=== PATIENT | female | born 1965 | race Caucasian/White ===

== ENCOUNTER → 2018-07-29 15:53 | Outpatient (CLI) | payer OTHER, SELFPAY ==
--- NOTE | 2018-07-29 | DI.US.S_ITS ---
PROCEDURE: US RENAL COMPLETE INDICATIONS: HEMATURIA TECHNIQUE: Real-time scanning was performed of the kidneys and bladder, with image documentation. COMPARISON: None. FINDINGS: Kidneys: Kidneys are normal in size. Right kidney measures 10.1 cm long; left kidney measures 11.1 cm long. Right renal cortical thickness is 1.1 cm; left renal cortical thickness is 1.5 cm. Renal cortical echotexture is normal. No hydronephrosis or nephrolithiasis. No suspicious solid mass lesions. Bladder: Pre-void bladder volume is 519 mL. Post-void residual is 27 mL. Pre-void images demonstrate no intraluminal masses or stones. On pre-void images, right but not the left ureteral jets are noted with color Doppler interrogation. (Of note, ureteral jets may not be detectable in up to 25% of cases due to insufficient differences in specific gravity between ureteral and bladder urine). Miscellaneous: No free pelvic fluid. IMPRESSION: No hydronephrosis or nephrolithiasis is found. There is a 1.3 cm right renal cortical simple cyst. Source of hematuria is not found. Bladder volume prevoid is 519 cc, post void is 27 cc. Dictated by: Sergo Mccormick M.D. on 07/29/2018 at 16:52 Approved by: Sergo Mccormick M.D. on 07/29/2018 at 16:53
== END ==
PROVIDERS: PCP Nurse Practitioner Family; Visit Provider Nurse Practitioner Family
DX: R31.9 Hematuria, unspecified (principal); N28.1 Cyst of kidney, acquired
CPT/HCPCS: 76770

== ENCOUNTER → 2019-05-06 14:01 | Outpatient (CLI) | payer OTHER, SELFPAY ==
--- NOTE | 2019-05-06 | DI.RAD.S_ITS ---
PROCEDURE: XR KNEE RT 3V INDICATIONS: CHRONIC RT KNEE PAIN TECHNIQUE: 3 views of the knee were acquired. COMPARISON: None. FINDINGS: Bones: No fractures or dislocations. No suspicious bony lesions. Mild lateral patellar tilt. Mild narrowing of the medial joint space. Soft tissues: No joint effusion. No suspicious soft tissue calcifications. IMPRESSION: Mild right knee joint degeneration Dictated by: Ranjeet Shaikh M.D. on 05/06/2019 at 14:45 Approved by: Ranjeet Shaikh M.D. on 05/06/2019 at 14:46
== END ==
PROVIDERS: PCP Nurse Practitioner Family; Referring Provider Nurse Practitioner Family; Visit Provider Nurse Practitioner Family
DX: M25.561 Pain in right knee (principal); M17.11 Unilateral primary osteoarthritis, right knee; G89.29 Other chronic pain
CPT/HCPCS: 73562

== ENCOUNTER → 2019-10-14 13:03 | Outpatient (CLI) | payer OTHER, SELFPAY ==
--- NOTE | 2019-10-14 13:06 | DI.CT.S_ITS ---
PROCEDURE: CT ABDOMEN PELVIS WO/W CON INDICATIONS: MICROSCOPIC HEMATURIA TECHNIQUE: Optional 5 mm thick noncontrast images acquired from the diaphragm to the symphysis pubis. After the administration of intravenous contrast, 5 mm thick images acquired from the diaphragm to the symphysis pubis after a 10-minute delay. 2 mm thick coronal and sagittal reformats were then performed of the kidneys and ureters. For radiation dose reduction, the following was used: automated exposure control, adjustment of mA and/or kV according to patient size. COMPARISON: None. FINDINGS: Image quality: Excellent. Lung bases: Lung bases are clear. Heart size is normal. Urinary system: Both kidneys are normal in size, without hydronephrosis or nephrolithiasis on pre-contrast images. No perinephric fat stranding. There is normal bilateral renal enhancement. Renal calyces appear normal in morphology when filled with contrast. Opacified portions of both ureters demonstrate normal caliber. Bladder wall thickness is normal. No calcified bladder stones. Other solid organs: Liver is normal in size and enhancement. Incidental small hepatic cysts versus hemangiomata. Gallbladder is unremarkable . Biliary system is non dilated. Pancreas enhances normally. Spleen is normal in size and enhancement. No adrenal nodules. Peritoneum and bowel: Question focal peristalsis versus focal constricting lesion in the level of the proximal rectum or rectosigmoid. Reference image 170/4. Colon otherwise unremarkable. Small bowel unremarkable. No free air, free fluid, or abscess cavity. Nodes and vessels: No retroperitoneal or mesenteric adenopathy by size criteria. Aorta and inferior vena cava are normal in size. Abdominal wall: No ventral hernias. Pelvis: No pathologic free pelvic fluid. No inguinal hernias or adenopathy. Bones: No suspicious bony lesions. No vertebral body compression fractures. IMPRESSION: 1. No evidence of renal stones, ureteral stones, or hydronephrosis. 2. No evidence of malignancy. 3. Question peristalsis versus constricting lesion of the proximal rectum or rectosigmoid junction region. Recommend direct visualization utilizing colonoscopy if recent colonoscopy has not been performed. Dictated by: Wilner Hernandez M.D. on 10/14/2019 at 14:17 Approved by: Wilner Hernandez M.D. on 10/14/2019 at 14:23
== END ==
PROVIDERS: PCP Nurse Practitioner Family; Referring Provider Urology; Visit Provider Urology
DX: R31.29 Other microscopic hematuria (principal)
CPT/HCPCS: 74178; Q9967

== ENCOUNTER 2020-01-06 08:55 | Day surgery (SDC) | payer OTHER, SELFPAY ==
--- NOTE | 2020-01-06 | PATH_ITS ---
[facility] Accession Number: [id number] . 01 Material submitted: . body - POLYP AT 65CM . 02 Diagnosis: Colon, Polyp at 65 cm, Biopsy: Sessile serrated adenoma. V 01/10/2020 1051 Local . 02 Electronically signed: . Leslie Mccarty MD, Pathologist NPI- [id number] . 01 Gross description: . The specimen is received in formalin, labeled polyp at 65 cm, and consists of a 1.3 x 0.6 x 0.2 cm, lynn-pink polyp. The base inked blue. The specimen is bisected and entirely submitted in cassette A1. ([id number]) /R 01/07/2020 1717 Local . 02 Pathologist provided ICD-10: D12.6 . 02 CPT . 947106 Performed at: 01 [facility] [address] [id number] MD Alex Valladares MD Phone: [phone] Performed at: 02 [facility] [address] [place], [place] [id number] MD Leslie Mccarty MD Phone: [phone]
[2020-01-06] MEDS: SODIUM CHLORIDE 0.9% 1,000 ML 200 ML IV (09:15)
[2020-01-06 09:18] VITALS: BP 124/71; PULSE 67; RESP 16; TEMP 37.4; O2SAT 97; BMI 25.6
--- NOTE | 2020-01-06 09:37 | PM.HP.1 ---
History of Present Illness History of Present Illness Date Patient Seen: 01/06/20 Time Patient Seen: 09:37 Chief complaint: SDC Narrative: This is a 54-year-old woman with history of colon polyps found on a prior colonoscopy 4 years ago. She also had a CT scan recently which showed a narrowing in her sigmoid colon which may be an artifact of the scan. She denies any changes in bowel habit, melena, hematochezia, unexplained abdominal pain, unexplained weight loss. ROS: Arthritis, Thirteen system review is otherwise negative other than as mentioned below and in HPI. PE GENERAL: Well groomed and cooperative. Appears stated age. Answers questions promptly and appropriately. Vital signs noted. HENT: Normocephalic, atraumatic. Hearing intact. EYES: Conjunctiva pink, sclera white, no periorbital swelling. CARDIOVASCULAR: Regular rate. No pedal edema. RESPIRATORY: Non-tachypneic, breathing comfortably on room air. GASTROINTESTINAL: Abdomen soft and non-distended GENITALURINARY: No flank tenderness. MUSCULOSKELETAL: Equal tone and mass bilaterally. SKIN: Warm, dry, soft, appropriate color for ethnicity. No other lesions, rashes, or wounds. NEURO: Alert and Oriented X 3. No gross sensory deficits, or cognitive issues. PSYCH: Appropriate affect and mood. Patient History Family & Social History Social History: household members significant other Tobacco & Substance use: Smoking Status Never smoker alcohol intake current alcohol intake frequency a few times a week Substance Use Type does not use Meds Home Medications and Allergies Home Medications Medication Instructions Recorded Confirmed Type multivitamin 1 cap PO DAILY 01/06/20 01/06/20 History Allergies Allergy/AdvReac Type Severity Reaction Status Date / Time Sulfa (Sulfonamide Allergy Severe Hives Unverified 01/06/20 09:07 Antibiotics) Exam Vital Signs (past 8 hours): - 01/06/20 09:18 Temperature 99.3 F Pulse Rate 67 Respiratory Rate 16 Blood Pressure 124/71 Pulse Oximetry 97 Oxygen Delivery Method Room Air Assessment & Plan Assessment & Plan narrative: Risks and benefits of screening colonoscopy and possible polypectomy were discussed with the patient including risk of bleeding, perforation, need for additional procedures, risks of anesthesia. The patient desires to proceed with the colonoscopy procedure. COVID-19 COVID-19 status: Negative Result date/Date tested (Pos, Neg/Pending): 10/27/20 Time Spent With Patient Time with patient: 15-24 minutes Quality VTE Deep Vein Thrombosis/Pulmonary Embolism Present on Admission: No
--- NOTE | 2020-01-06 09:41 | PM.OP.ENDO ---
Operative Date/Time/Diagnoses Date of procedure: 01/06/20 Time of procedure: 09:41 Pre-op diagnosis: Personal history of colon polyps, abnormal CT scan Post-op diagnosis: other (1cm polyp removed from 65cm; tortuous sigmoid colon) Procedure & Clinicians Study performed: Colonoscopy Procedural sedation performed by the endoscopist Polypectomy with cold snare Indications: Personal history of colon polyps, abnormal CT scan showing rectal narrowing Surgeon: Haritha Cam Procedure Notes SCOAP/Timeout: Performed Procedure in detail: The patient was brought to the room and placed in left lateral decubitus position with all bony prominences padded. A time-out was performed and then the patient was given procedural sedation starting with 3 mg of Versed and 100 mcg of fentanyl. A total of 7 mg of Versed and 200 micro g of fentanyl were given for the entire procedure. Vitals were monitored throughout the procedure and remained stable. Once adequately sedated, the procedure was begun. A rectal exam was performed revealing no abnormalities. The colonoscope was then introduced to the rectum and advanced to the cecum in the usual fashion. The sigmoid colon was very tortuous, but was not found to be stenosed, and no mucosal abnormality was seen within the sigmoid colon. The cecum was identified by the appendiceal orifice, the mucosal tri-fold, and the ileocecal valve. 1 cm polyp was found at 65 cm in the descending colon. It will was removed with cold snare and sent for pathology. The scope was then retracted while rotating side to side and examining each mucosal fold. At the conclusion of the procedure retroflexion was performed and small grade 1-2 internal hemorrhoids without stigmata of bleeding were seen. The scope was then withdrawn from the rectum the procedure was concluded. The patient tolerated the procedure well and was transferred to the PACU in stable condition. Scope withdrawal time: 10 Sedation minutes: 35 Findings: polyp and other findings (Tortuous sigmoid colon) Specimen(s): other (Polyp from 65 cm) Complications: none Impression: Tortuous sigmoid colon, 1 cm polyp in the descending colon, removed and sent for pathology Post-procedure Recommendations: Colonscopy in 5 years (Depending on pathology results) Follow up: as needed Disposition: PACU
[2020-01-06] MEDS: fentaNYL 250 MCG/5 ML INJ IV (09:42)
[2020-01-06] MEDS: MIDAZOLAM 5 MG/5 ML VIAL IV ×2 (09:42→10:10)
[2020-01-06 10:21] VITALS: BP 115/73; PULSE 75; RESP 18; TEMP 36.6; O2SAT 97
[2020-01-06 10:26] VITALS: BP 104/67; PULSE 64; RESP 22; O2SAT 97
[2020-01-06 10:31] VITALS: BP 113/69; PULSE 71; RESP 12; O2SAT 98
[2020-01-06 10:39] VITALS: BP 101/62; PULSE 57; RESP 15; TEMP 36.4; O2SAT 98
== END 2020-01-06 11:01 | disposition home or self-care (01) ==
PROVIDERS: PCP Nurse Practitioner Family; Referring Provider Surgery; Visit Provider Surgery
PROC: 0DJD8ZZ Inspection of Lower Intestinal Tract, Via Natural or Artificial Opening Endoscopic (ICD-10-PCS; CPT 45378; principal; 2020-01-06 10:00)
DX: D12.4 Benign neoplasm of descending colon (principal); K56.2 Volvulus; K64.0 First degree hemorrhoids
CPT/HCPCS: 45385; 99152; 99153; J2250; J3010

== ENCOUNTER → 2021-10-05 09:40 | Outpatient (CLI) | payer OTHER, SELFPAY ==
--- NOTE | 2021-10-05 09:41 | DI.MG.S_ITS ---
BILATERAL DIGITAL SCREENING MAMMOGRAM 3D/2D WITH CAD: 10/05/2021 CLINICAL: Routine screening. Comparison is made to exams dated: 07/21/2017 mammogram and 05/24/2019 mammogram - outside facility. There are scattered fibroglandular elements in both breasts. Current study was also evaluated with a Computer Aided Detection (CAD) system. No significant masses, calcifications, or other findings are seen in either breast. There has been no significant interval change. IMPRESSION: NEGATIVE There is no mammographic evidence of malignancy. A 1 year screening mammogram is recommended. Based on the Tyrer Cuzick model (a risk assessment model) the patient's lifetime risk is 9.8% and her 10 year risk is 3.2%. According to the ACR, ACS, and NCCN guidelines, an annual breast MRI exam along with mammogram is recommended if the patient's lifetime risk is 20% or greater. This exam was interpreted at Station ID: [id number]. NOTE: For mammograms, a report in lay terms will be sent to the patient. Approximately 15% of breast malignancies will not be visualized mammographically. In the management of a palpable breast mass, a negative mammogram must not discourage biopsy of a clinically suspicious lesion. Electronically Signed By: Levy ziegler/izaiah:10/08/2021 10:25:53 letter sent: Normal Exam ACR BI-RADS Category 1: Negative 3341F
== END ==
PROVIDERS: PCP Physician Assistant; Referring Provider Physician Assistant; Visit Provider Physician Assistant
DX: Z12.31 Encounter for screening mammogram for malignant neoplasm of breast (principal)
CPT/HCPCS: 77063; 77067

== ENCOUNTER → 2022-11-07 12:56 | Outpatient (CLI) | payer OTHER, SELFPAY ==
--- NOTE | 2022-11-07 | DI.MG.S_ITS ---
BILATERAL DIGITAL SCREENING MAMMOGRAM 3D/2D WITH CAD: 11/07/2022 CLINICAL: Routine screening. Comparison is made to exams dated: 10/05/2021 mammogram - [facility], 05/24/2019 mammogram, and 07/21/2017 mammogram - outside facility. There are scattered areas of fibroglandular density in both breasts (category b / 25%-50% glandular tissue). Current study was also evaluated with a Computer Aided Detection (CAD) system. No significant masses, calcifications, or other findings are seen in either breast. There has been no significant interval change. IMPRESSION: NEGATIVE There is no mammographic evidence of malignancy. A 1 year screening mammogram is recommended. Based on the Tyrer Cuzick model (a risk assessment model) the patient's lifetime risk is 9.7% and her 10 year risk is 3.4%. According to the ACR, ACS, and NCCN guidelines, an annual breast MRI exam along with mammogram is recommended if the patient's lifetime risk is 20% or greater. This exam was interpreted at Station ID: [id number]. NOTE: For mammograms, a report in lay terms will be sent to the patient. Approximately 15% of breast malignancies will not be visualized mammographically. In the management of a palpable breast mass, a negative mammogram must not discourage biopsy of a clinically suspicious lesion. Electronically Signed By: Levy ziegler/izaiah:11/07/2022 13:46:16 letter sent: Normal Exam ACR BI-RADS Category 1: Negative 3341F
== END ==
PROVIDERS: PCP Physician Assistant; Referring Provider Physician Assistant; Visit Provider Physician Assistant
DX: Z12.31 Encounter for screening mammogram for malignant neoplasm of breast (principal)
CPT/HCPCS: 77063; 77067

== ENCOUNTER 2025-02-10 08:07 | Day surgery (SDC) | payer OTHER, SELFPAY ==
[2025-01-31 12:18] VITALS: BMI 27.4
[2025-02-10 08:35] VITALS: BP 111/69; PULSE 58; RESP 16; TEMP 36.7; O2SAT 97
[2025-02-10] MEDS: LACTATED RINGERS 1,000 ML 42 ML IV (08:48)
--- NOTE | 2025-02-10 09:13 | P.HP_ITS ---
History of Present Illness History of Present Illness Date Patient Seen: 02/10/25 Time Patient Seen: 09:13 Chief complaint: SDC Narrative: Jennie is a 59-year-old woman who had a colonoscopy here in [address] Siegel where a 1 cm adenomatous polyp was removed. No known family history of colon cancer. She does not believe she has had other polyps removed prior to 2019. [facility] Medical History (Updated 02/10/25 @ 09:14 by Brandon Ayers MD) Anxiety Autoimmune thyroiditis Hyperprolactinemia (2015) Surgical History (Updated 01/31/25 @ 12:21 by Apolonia Tesfaye RN) Hx of colonoscopy with polypectomy (12/2019) History of pituitary surgery (1997) Social History household members: significant other Smoking Status: Never smoker alcohol intake: current Meds Home Medications and Allergies Home Medications ?Medication ?Instructions ?Recorded ?Confirmed ?Type multivitamin 1 cap PO DAILY 01/06/20 10/3 History escitalopram oxalate 10 mg tablet 10 mg PO DAILY 01/3102/10/25 History estradiol 0.5 mg tablet 0.5 mg PO QAM 01/31/2502/10 History medroxyprogesterone 2.5 mg tablet 2.5 mg PO QAM 02/10/25 History propranolol 10 mg tablet 10 mg PO BID PRN anxiety 02/10/25 History Allergies Allergy/AdvReac Type Severity Reaction Status Date / Time Sulfa (Sulfonamide Allergy Severe Hives Verified 02/10/25 08:27 Antibiotics) Exam Vital Signs (past 8 hours): - 02/10/25 08:35 Temperature 98.1 F Pulse Rate 58 L Respiratory Rate 16 Blood Pressure 111/69 Pulse Oximetry 97 Oxygen Delivery Method Room Air Oxygen Delivery Method Room Air Const General: healthy appearing Assessment & Plan Assessment and plan (1) History of adenomatous polyp of colon: Status: Acute Plan Colonoscopy for history of polyps Time-Based Coding :: [TOTAL MINUTES] spent with patient and on the chart (including review of chart, obtaining history, exam, reviewing outside data, placing orders, documenting exam and treatment plan, and counseling patient) on [DATE]. PROFEE Assistant [employer] Document charge(s): No
[2025-02-10 09:45] VITALS: BP 83/46; PULSE 64; RESP 22; TEMP 36.4; O2SAT 92
--- NOTE | 2025-02-10 09:45 | PM.OP.COLON ---
Operative Date/Time/Diagnoses Date of procedure: 02/10/25 Time of procedure: 09:45 Pre-op diagnosis: History of polyps Post-op diagnosis: same Procedure & Clinicians Study performed: Colonoscopy Same procedure(s) as scheduled: Yes Surgeon: Brandon Ayers Anesthesia Type: MAC +/- Procedure Notes Procedure in detail: Surgeon: Brandon Ayers MD Anesthesia: Isabella Ortega CRNA Procedure: The patient was brought to the endoscopy suite, placed in left lateral decubitus position. The patient was connected to monitoring devices. A time-out was performed. Sedation was administered. Once the patient was adequately sedated, a digital rectal exam was performed and was normal. The scope was then inserted and advanced to the cecum where the appendiceal orifice was identified and photographed. The scope was then slowly withdrawn over greater than 6 minutes. The mucosa was thoroughly inspected. No polyps were found. The scope was retroflexed in the rectum. No other abnormalities were seen. The scope was straightened and removed. The patient was awakened and brought to recovery. Scope withdrawal time: 9 minutes Sedation time: 18 minutes Findings: Normal colon Estimated Blood Loss: 0 Complications: none Post-procedure Recommendations: Colonoscopy in 5 years Disposition: PACU
[2025-02-10 09:52] VITALS: BP 90/55; PULSE 67; RESP 20; TEMP 36.1; O2SAT 98
== END 2025-02-10 10:13 | disposition home or self-care (01) ==
PROVIDERS: PCP Physician Assistant; Referring Provider Surgery; Visit Provider Surgery
PROC: 0DJD8ZZ Inspection of Lower Intestinal Tract, Via Natural or Artificial Opening Endoscopic (ICD-10-PCS; CPT 45378; principal; 2025-02-10 09:15)
DX: Z12.11 Encounter for screening for malignant neoplasm of colon (principal); Z86.0101 Personal history of adenomatous and serrated colon polyps
CPT/HCPCS: 45378; J2704; J7120